=== PATIENT | female | born 1990 | race Caucasian/White ===

== ENCOUNTER 2016-03-28 05:40 | Inpatient (IN) | payer MEDICAID ==
[2016-03-28] MEDS ORDERED: LIDOCAINE 1% (PF) 10 MG/ML (30 ML SDV) SQ PRN (06:00)
[2016-03-28] MEDS ORDERED: CARBOPROST TROMETHAMINE 250 MCG/ML 1 ML AMP IM PRN (06:00)
[2016-03-28] MEDS ORDERED: OXYTOCIN 10 UNIT/ML 1 ML VIAL IM PRN (06:00)
[2016-03-28] MEDS ORDERED: METHYLERGONOVINE 0.2 MG/ML 1 ML AMP IM PRN (06:00)
[2016-03-28] MEDS ORDERED: TERBUTALINE 1 MG/ML VIAL SQ PRN (06:00)
[2016-03-28 06:35] VITALS: BMI 37.1
[2016-03-28] MEDS: LACTATED RINGERS 1,000 ML IV SCH ×4 (06:40→22:01)
[2016-03-28 06:42] LABS: Basophils % (A) 0 %; CH 33.1; Eosinophils # (A) 0.1 k/uL (0-0.7); Eosinophils % (A) 1 %; HCT 33.7 % (34.0-46.0); HDW 2.91; HGB 11.5 gm/dL (11.4-16.0); Luc # (Auto) 0.13; Luc % (Auto) 2; Lymphocytes # (A) 1.9 k/uL (1.0-4.8); Lymphocytes % (A) 23 %; MCH 32.5 pg (25.0-35.0); MCHC 34.2 g/dL (31.0-37.0); MCV 95.2 fL (80.0-100.0); Monocytes # (A) 0.3 k/uL (0-1.0); Monocytes % (A) 4 %; Neutrophils # (A) 5.9 k/uL (1.3-7.7); Neutrophils % (A) 71 %; RBC 3.54 m/uL (3.80-5.40); RDW 13.7 % (11.5-15.5); WBC 8.3 k/uL (3.8-10.6); WBC (Perox) 8.69
[2016-03-28] MEDS: OXYTOCIN 30 UNITS/500 ML NS 30 UNIT in SALINE 1 500ML.BAG IV SCH (06:46)
--- NOTE | 2016-03-28 07:15 | P.HPOB ---
History of Present Illness H&P Date: 03/28/16 Chief Complaint: SROM 25 year old presents at 37 weeks with SROM. Her cervix is 1/thick/-3 and she is not flores. heart tones 145-150 with moderate variability and reactive. Review of Systems All systems: negative Constitutional: Denies chills, Denies fever Eyes: denies blurred vision, denies pain Ears, nose, mouth and throat: Denies headache, Denies sore throat Cardiovascular: Denies chest pain, Denies shortness of breath Respiratory: Denies cough Gastrointestinal: Denies abdominal pain, Denies diarrhea, Denies nausea, Denies vomiting Genitourinary: Denies dysuria, Denies hematuria Musculoskeletal: Denies myalgias Integumentary: Denies pruritus, Denies rash Neurological: Denies numbness, Denies weakness Psychiatric: Denies anxiety, Denies depression Endocrine: Denies fatigue, Denies weight change Past Medical History Past Medical History: No Reported History History of Any Multi-Drug Resistant Organisms: None Reported Past Surgical History: No Surgical Hx Reported Past Anesthesia/Blood Transfusion Reactions: No Reported Reaction Past Psychological History: No Psychological Hx Reported Smoking Status: Former smoker Past Alcohol Use History: None Reported Past Drug Use History: None Reported - Past Family History Father History Unknown: Yes Family Medical History: Diabetes Mellitus Medications and Allergies Home Medications Medication Instructions Recorded Confirmed Type No Known Home Medications [No 03/28/16 03/28/16 History Known Home Medications] Allergies Allergy/AdvReac Type Severity Reaction Status Date / Time No Known Allergies Allergy Verified 03/28/16 05:45 Exam Osteopathic Statement: *. No significant issues noted on an osteopathic structural exam other than those noted in the History and Physical/Consult. - Vital Signs Vital signs: Vital Signs Temp Pulse Resp BP 03/28/16 06:17 96.5 F L 100 16 122/79 Intake and Output 03/27/16 03/28/16 03/28/16 22:59 06:59 14:59 Other: Weight 104.326 kg Heart: Regular rate and rhythm Lungs: Clear to auscultation bilaterally Abdomen: Soft, nontender Extremities: Negative Homans sign Results Result Diagrams: 03/28/16 06:34 Abnormal Lab Results - Last 24 Hours (Table) 03/28/16 Range/Units 06:34 RBC 3.54 L (3.80-5.40) m/uL Hct 33.7 L (34.0-46.0) % Assessment and Plan (1) Spontaneous rupture of membranes Status: Acute Plan: 1. Admit to labor and delivery 2. Pitocin augmentation 3. Anticipate normal vaginal delivery
[2016-03-28] MEDS ORDERED: BUTORPHANOL 1 MG/ML 1 ML VIAL IV PRN (14:51)
[2016-03-28] MEDS ORDERED: BUPIVACAINE (PF) 0.25% 30 ML VIAL ONE (17:32)
[2016-03-28] MEDS ORDERED: fentaNYL (PF) 50 MCG/ML 5 ML AMP ONE (17:32)
[2016-03-28] MEDS ORDERED: SODIUM CHLORIDE 0.9% 100 ML BAG ONE (17:32)
[2016-03-28] MEDS ORDERED: BUPIVACAINE (PF) 0.25% 25 ML, fentaNYL (PF) 200 MCG in SODIUM CHLORIDE 0.9% 71 ML EPIDURAL ONE (18:08)
[2016-03-28] MEDS ORDERED: ONDANSETRON 4 MG/2 ML VIAL IVP STA (20:59)
[2016-03-28] MEDS ORDERED: AMPICILLIN 2,000 MG in SODIUM CHLORIDE 0.9% 100 ML IVPB STA (21:18)
--- NOTE | 2016-03-28 23:02 | P.PROBDLV ---
Vaginal Delivery Note - . Vaginal Delivery Note: Patient progressed complete and pushing with spontaneous vaginal delivery of a viable male over an intact perineum. A nuchal cord 1 was noted following delivery head but baby was easily delivered through the nuchal cord. Once baby was fully delivered mouth nares were bulb suctioned and maybe was placed on mother's abdomen where the umbilical cord was clamped and cut in usual fashion following 1 minute of pulsation due to baby appearing to be smaller than expected. Nursery personnel was present to assume care following this. Placenta was then delivered intact Pitocin was added to the IV. scores and weight are pending but both mother and baby currently appear stable following delivery.
[2016-03-29] MEDS ORDERED: WITCH HAZEL 1 EACH MED..PAD TOPICAL PRN (00:30)
[2016-03-29] MEDS ORDERED: BENZOCAINE/MENTHOL SPRAY 1 GM/SPRAY AEROSOL TOPICAL PRN (00:30)
[2016-03-29] MEDS ORDERED: HYDROCORTISONE 2.5% RECTAL CREAM 30 GM TUBE RECTAL PRN (00:30)
[2016-03-29] MEDS ORDERED: SIMETHICONE 80 MG CHEWABLE PO PRN (00:30)
[2016-03-29] MEDS ORDERED: ZOLPIDEM 5 MG TAB PO PRN (00:30)
[2016-03-29] MEDS ORDERED: diphenhydrAMINE 50 MG/ML 1 ML VIAL IVP PRN ×2 (00:30)
[2016-03-29] MEDS ORDERED: ACETAMINOPHEN TAB 325 MG TAB PO PRN (00:30)
[2016-03-29] MEDS ORDERED: IBUPROFEN 600 MG TAB PO PRN (00:30)
[2016-03-29] MEDS ORDERED: diphenhydrAMINE 25 MG CAP PO PRN (00:30)
[2016-03-29] MEDS ORDERED: LANOLIN CREAM 5 GM TUBE TOPICAL PRN (00:30)
[2016-03-29] MEDS ORDERED: diphenhydrAMINE 50 MG CAP PO PRN (00:30)
[2016-03-29] MEDS ORDERED: AMPICILLIN 1,000 MG in SODIUM CHLORIDE 0.9% 50 ML IVPB SCH (02:00)
[2016-03-29] MEDS: OXYTOCIN 30 UNITS/500 ML NS 30 UNIT in SALINE 1 500ML.BAG IV SCH ×2 (04:01→06:56)
--- NOTE | 2016-03-29 08:37 | P.PNOBGVD ---
Subjective - Subjective Principal diagnosis: Status post normal vaginal delivery day #1 Interval history: Patient seen and examined. Denies nausea, vomiting, chest pain, shortness of breath or calf pain. Patient reports: Reports appetite normal, Reports voiding normally, Reports pain well controlled, Reports ambulating normally Objective - Latest Vital Signs Latest vital signs: Vital Signs Temp Pulse Resp BP 03/29/16 04:00 98.4 F 74 16 120/53 03/29/16 01:09 96.2 F L 81 16 138/66 03/29/16 00:30 71 16 126/66 03/29/16 00:00 85 16 128/69 03/28/16 23:45 80 16 122/59 03/28/16 23:30 86 16 131/65 03/28/16 23:15 78 16 126/60 03/28/16 23:00 97.2 F L 76 16 128/60 Intake and Output 03/28/16 03/29/16 03/29/16 22:59 06:59 14:59 Intake Total 1000 Output Total 300 Balance 700 Intake: IV 1000 Lactated Ringers 1,000 ml 1000 @ 125 mls/hr IV .Q8H [facility] Rx#:[id number] Output: Emesis 300 Other: # Voids 2 1 - Exam Lungs: bilateral: normal Chest: Normal S1, Normal S2 Extremities: Present: normal Abdomen: Present: normal appearance, soft Uterus: Present: normal, firm Assessment and Plan (1) Spontaneous rupture of membranes Current Visit: Yes Status: Resolved Code(s): IOI2061 - SNOMED Code(s): 019304423 (2) Normal vaginal delivery Current Visit: Yes Status: Acute Code(s): O80 - ENCOUNTER FOR FULL-TERM UNCOMPLICATED DELIVERY SNOMED Code(s): 47159963
[2016-03-29] MEDS: SENNOSIDES-DOCUSATE SODIUM 1 EACH TAB PO SCH ×2 (08:45→20:07)
[2016-03-29] MEDS ORDERED: MEASLES-MUMPS-RUBELLA VACC/PF 12,500 UNIT/0.5 ML VIAL SQ ONE (08:47)
[2016-03-30] MEDS: OXYTOCIN 30 UNITS/500 ML NS 30 UNIT in SALINE 1 500ML.BAG IV SCH (02:11)
--- NOTE | 2016-03-30 08:02 | P.DS ---
Providers Date of admission: 03/28/16 06:01 Expected date of discharge: 03/30/16 Attending physician: Michelle Gonzalez Primary care physician: Stated None - Discharge Diagnosis(es) (1) Spontaneous rupture of membranes Current Visit: Yes Status: Resolved (2) Normal vaginal delivery Current Visit: Yes Status: Acute Hospital Course: PAtient presented with SROM. She had pitocin augmentation and underwent a normal vaginal delivery. Her post course was uncomplicated. She will be discharged home PPD #2 in stable condition to follow up with me in 6 weeks. Plan - Discharge Summary Discharge Medication List No Known Home Medications [No Known Home Medications] 03/28/16 [History] Follow up Appointment(s)/Referral(s): Michelle Gonzalez DO [Doctor of Osteopathic Medicine] - 6 Weeks Discharge Disposition: HOME SELF-CARE
[2016-03-30] MEDS: SENNOSIDES-DOCUSATE SODIUM 1 EACH TAB PO SCH ×2 (08:43→22:14)
[2016-03-30 16:00] VITALS: BP 126/77; PULSE 68; RESP 17; TEMP 97.7
== END 2016-03-30 22:40 | disposition home or self-care (01) | DRG 775 ==
LOC: FBPOP 05:40 → 4FBP 06:01
PROVIDERS: ADMIT Obstetrics & Gynecology; ATTEND Obstetrics & Gynecology
PROC: 10E0XZZ Delivery of Products of Conception, External Approach (ICD-10-PCS; principal; 2016-03-28)
DX: O69.81X0 Labor and delivery complicated by cord around neck, without compression, not applicable or unspecified (principal); O36.5930 Maternal care for other known or suspected poor fetal growth, third trimester, not applicable or unspecified; Z87.891 Personal history of nicotine dependence; Z37.0 Single live birth; Z3A.37 37 weeks gestation of pregnancy
CPT/HCPCS: 59025; 84112; 85025; 88307; 90707; 99213